=== PATIENT | female | born 1975 | race Caucasian/White ===

== ENCOUNTER 2022-01-01 09:57 | Outpatient (REF) | payer MEDICAID, SELFPAY ==
--- NOTE | ~2022-01-01 | US_ITS ---
EXAMINATION: US VENOUS ULTRASOUND WITH DOPPLER LOWER EXTREMITY, LEFT CLINICAL INFORMATION: Left leg pain COMPARISON: None TECHNIQUE: Ultrasound of the deep veins is performed from the hip to the calf with compression sonography and color and pulse Doppler assessment. Spectral analysis with color-flow imaging is performed. FINDINGS: There is normal venous compression and respiratory variation and augmented flow. The visualized common femoral vein, superficial femoral vein, profunda femoral vein, popliteal vein, and the trifurcation region shows no evidence of deep venous thrombosis. There is no significant popliteal fossa cyst. No popliteal artery aneurysm. US/US venous duplex LE LT IMPRESSION: No acute DVT demonstrated in the left lower extremity.
== END 2022-01-01 09:58 | disposition home or self-care (01) ==
LOC: HO.US 09:57
PROVIDERS: Absent Provider Internal Medicine; PCP Internal Medicine; Visit Provider Emergency Medicine
DX: M79.605 Pain in left leg (principal)
CPT/HCPCS: 93971

== ENCOUNTER 2022-03-09 16:38 | Emergency (ER) | payer MEDICAID, SELFPAY ==
--- NOTE | ~2022-03-09 | XR_ITS ---
EXAMINATION: XR CHEST CLINICAL INFORMATION: Shortness of breath COMPARISON: 04/07/2020 TECHNIQUE: Frontal view of the chest was obtained. FINDINGS: No significant abnormality is noted involving the heart, lungs, mediastinum, bony thorax or soft tissues. XR/XR chest 1V IMPRESSION: Unremarkable examination.
[2022-03-09 17:44] VITALS: BP 105/69; PULSE 88; RESP 16; TEMP 36.9; O2SAT 97; BMI 35.4
--- NOTE | 2022-03-09 18:03 | ED.GENADULT ---
HPI - General Adult General Chief complaint: Upper Respiratory Symptoms Stated complaint: asthma diff breathing Time Seen by Provider: 03/09/22 18:02 Source: patient Mode of arrival: ambulatory Limitations: no limitations History of Present Illness HPI narrative: This is a 46-year-old female past medical history significant for asthma presenting to the emergency department with a sore throat, dry cough, shortness of breath and some wheezing. Patient tells me symptoms are worse at night. This has been going on for 2 days. She tells me she went to work today and her boss requested that she get a strep test to rule out strep as this is contagious. Patient tells me that she feels fine right now. She has been taking Mucinex and inhaler. She denies chest pain, fevers, chills, nausea, vomiting, abdominal pain, weakness, dizziness, vision changes. No recent sick contacts. Onset (ago): day(s) (2) Severity: mild Relieving factors: none Exacerbating factors: none Associated symptoms: denies other symptoms Treatments prior to arrival: none and other (Mucinex, inhaler) Related Data Previous Rx's Medication Instructions Recorded albuterol sulfate 90 mcg/actuation 2 inh INHALATION Q4-6H PRN #1 ea 03/09/22 breath activated powder inhaler fluticasone propionate 50 1 spray INTRANASAL DAILY #16 g 03/09/22 mcg/actuation nasal spray,suspension (Flonase Allergy Relief) prednisone 20 mg tablet 20 mg PO DAILY 5 Days #5 tab 03/09/22 Allergies Allergy/AdvReac Type Severity Reaction Status Date / Time morphine [MORPHINE] Allergy Severe DIFFICULTY Verified 03/09/22 17:39 BREATHING, asthma, asthma ibuprofen [IBUPROFEN] Allergy Mild HIVES Verified 03/09/22 17:39 red dye [RED DYE] Allergy Mild HIVES Verified 03/09/22 17:39 tramadol [TRAMADOL] Allergy Mild HIVES Verified 03/09/22 17:39 VOMITTING Tylox Allergy Unknown hives Uncoded 12/24/15 00:00 Review of Systems Review of Systems: Constitutional : No Weight loss, No Fever, No Chills, No Fatigue, No Malaise ENT/Mouth : No sore throat, No Rhinorrhea Eyes: No Eye Pain, No Swelling, No Redness Cardiovascular : No Chest Pain, + SOB, No Dyspnea on Exertion, No Orthopnea, No Edema, No Palpitations Respiratory : No Cough, No Sputum, + Wheezing Gastrointestinal : No Nausea, No Vomiting, No Diarrhea, No Constipation, No abdominal Pain, No Hematochezia, No Melena Genitourinary : No Dysuria, No Urinary Frequency, No Hematuria, Musculoskeletal : No joint pain, No Myalgias, No Joint Swelling Skin : No Skin Lesions, No rash Neuro : No Weakness, No Numbness, No Dizziness, No Headache Psych : No Anxiety/Panic, No Depression All other systems reviewed and are negative Yes all other systems are reviewed and are negative [facility] Past Medical History Attestation statement: The following information was validated with the patient. Source: old records reviewed and nursing notes reviewed Medical History Asthma Surgical History H/O: hysterectomy History of cholecystectomy Social History Social History Advance Directives: No Advance Directives Information Provided: Yes Physical Exam ED Vital Signs: Vital Signs - 24 hr 03/09/22 17:44 03/09/22 18:22 Temperature 98.4 F Pulse Rate 88 84 Respiratory Rate 16 16 Blood Pressure 105/69 Pulse Oximetry 97 BMI result Body Mass Index 35.4 Vital signs stable Appearance: Alert.? Oriented X3.? No acute distress.? Head: Normocephalic, atraumatic, no step-offs or deformities Eyes: Pupils equal, round and reactive to light.? ENT: Pharynx normal.? Neck: Normal inspection.? Neck supple.? CVS: Normal heart rate and rhythm.? Pulses normal.? Respiratory: No respiratory distress.? Breath sounds normal.? Abdomen: Soft and + diminished breath sounds on right faint wheezing throughout .? Skin: Skin warm and dry.? Normal skin color.? Normal skin turgor.? Extremities: No lower extremity edema.? No calf ttp. 5/5 strength to bilateral upper and lower extremities Back: No midline tenderness, no C-spine tenderness, full range of motion, no CVA tenderness bilaterally Neuro: Oriented X 3.? No motor deficit.? No sensory deficit. CN 2-12 intact Course Reevaluation(s) Reevaluation #1: Strep negative. Chest x-ray with no acute findings. At this time likely viral syndrome. Patient will be discharged home with steroids, albuterol inhaler. I will also discharge him home on fluticasone as patient likely has allergies as well. At this time history and physical not consistent with pulmonary embolism. Patient denies chest pain. Patient tells me she is feeling better upon discharge. At this time I feel comfortable discharge home saturating 97% on ra on dc Time: 18:58 Medical Decision Making MDM Narrative Medical decision making narrative: 180 46 yo f presents w/ asthma like sx PE significant for have diminished breath sounds on the right and wheezing throughout that is faint. No lower extremity edema. No calf tenderness to palpation. Negative Tai bilaterally. Regular rate and rhythm. Abdomen soft nontender nondistended. Neuro nonfocal. Pharynx within normal limits no exudates or erythema. Plan- strep, cxr and albuterol tx Medical Records Medical records reviewed: Yes I reviewed the patient's medical records. Lab Data Lab results reviewed: Yes I reviewed the patient's lab results. Labs: Lab Results 03/09/22 Range/Units 18:38 S. pyogenes GrpA KELTON Negative (Negative) Critical Care Time Critical Care Time Critical Care Time: No Discharge Plan Discharge Clinical Impression: Bronchitis, Asthma Patient Disposition: Home, Self-Care Instructions: Asthma (ED), Acute Bronchitis (ED) Additional Instructions: Take your medications as prescribed. If you were prescribed antibiotics today, it is important that you take your medication to their entirety, do not skip any doses, do not finish them early. Follow-up with your primary care provider this week. Return to the emergency department with new or worsening symptoms. Such as fevers, chills, chest pain, shortness of breath, nausea, vomiting, dizziness, headache, vision changes, lethargy In case of emergency call 911 XR/XR chest 1V IMPRESSION: Unremarkable examination. Strep test negative. Prescriptions: New fluticasone propionate [Flonase Allergy Relief] 50 mcg/actuation spray,suspension 1 spray intranasal DAILY Qty: 16 0RF Rx Instructions: administer into each nostril albuterol sulfate 90 mcg/actuation aerosol powdr breath activated 2 inh inhalation Q4-6H PRN (Reason: shortness of breath or wheezing) Qty: 1 0RF prednisone 20 mg tablet 20 mg PO DAILY 5 Days Qty: 5 0RF Referrals: Renetta Tavares MD [Primary Care Provider] - 2 days Stand Alone Forms: Work/School Release
[2022-03-09] MEDS: Albuterol Sulfate (0.083%) 2.5 MG/3 ML VIAL.NEB 5 MG INHALE (18:16)
[2022-03-09 18:22] VITALS: PULSE 84; RESP 16; O2SAT 98
[2022-03-09 18:55] LABS: Strep A Nucleic Acid Negative (Negative)
== END 2022-03-09 19:07 | disposition home or self-care (01) ==
PROVIDERS: Emergency Provider Emergency Medicine; PCP Internal Medicine
DX: J40 Bronchitis, not specified as acute or chronic (principal); R06.02 Shortness of breath; Z79.899 Other long term (current) drug therapy
CPT/HCPCS: 36415; 71045; 87651; 94640; 94644; 99283; 99284

== ENCOUNTER 2022-08-03 18:49 | Emergency (ER) | payer MEDICAID, SELFPAY ==
[2022-08-03 23:29] VITALS: BP 101/54; PULSE 84; RESP 17; TEMP 36.4; O2SAT 99; BMI 26.4
== END 2022-08-04 00:12 | disposition left against medical advice (07) ==
PROVIDERS: Emergency Provider Emergency Medicine
DX: R10.9 Unspecified abdominal pain (principal); Z90.49 Acquired absence of other specified parts of digestive tract; Z90.710 Acquired absence of both cervix and uterus
CPT/HCPCS: 99281

== ENCOUNTER 2022-09-01 14:53 | Emergency (ER) | payer MEDICAID, SELFPAY ==
--- NOTE | ~2022-09-01 | XR_ITS ---
EXAMINATION: XR ANKLE, LEFT CLINICAL INFORMATION: Pain COMPARISON: None TECHNIQUE: AP, lateral, and mortise views of the left ankle. FINDINGS: The bones and soft tissues are normal. No fracture. Alignment is anatomic. Joint spaces are maintained. No joint effusion. There is inferior calcaneal spur. XR/XR ankle LT 2V IMPRESSION: Normal left ankle.
[2022-09-01 15:29] VITALS: BP 109/74; PULSE 81; RESP 18; TEMP 36.8; O2SAT 98; BMI 25.7
--- OUTSIDE RECORDS SUMMARY | 2022-09-01 22:49 | XMS_ITS | Continuity of Care Document ---
:1975 Author Organization [facility] Address [address] [place] [address]- Care Team Providers Name Role Phone Artem Gaxiola MD, Maria D Dimas Primary Care Physician Encounter [facility] Date(s): 05/14/20 - 06/13/20 [facility] [address] [place] [address]- [facility] Attending Physician: Sofia Hampton Admitting Physician: Sofia Hampton Referring Physician: AdmtrSofia Allergies, Adverse Reactions, Alerts Substance Reaction Severity Status ibuprofen Active morphine Active Tylox Active TraMADOL Hydrochloride Active Immunizations Given and Recorded Vaccine Date Status Refusal Reason pneumococcal 23-valent vaccine 11/03/11 Given tetanus/diphtheria/pertussis, acel(Tdap)1 02/05/11 Given 1Admin Note: vis given and waiver signed Medications Adderall 15 mg oral tablet 1 tablet, By Mouth, Daily in AM, 0 Refills, Maintenance, Tablet Start Date: 03/20/11 Status: OrderedCelexa 40 mg oral tablet 1 tablet = 40 mg, By Mouth, Daily, 0 Refills, Maintenance Start Date: 10/19/11 Status: OrderedFlovent HFA 44 mcg/inh inhalation aerosol with adapter 2 puffs, Inhalation, 2 times a day, # 10.6 Gm, 5 Refills, Maintenance, Aerosol Start Date: 07/04/12 Status: OrderedNebulizer/Compressor See Instructions, # 1 each, Maintenance, for use with albuterol liquid nebules, QID prn cough or wheezing, 12/18/11 14:16:28 Start Date: 12/18/11 Status: Orderednicotine 21 mg-14 mg-7 mg transdermal film, extended release See Instructions, 21 mg patch QD x 3 wks then 14 mg patch QD x 2 wks then 2 mg patch QD x 2 wks, # 49 application, 0 Refills, Maintenance Start Date: 05/18/12 Status: OrderedPercocet-5/325 325 mg-5 mg oral tablet 2 tablet, By Mouth, Every 4 hours, PRN Pain, # 30 tablet, 0 Refills, Maintenance Start Date: 05/19/12 Status: OrderedProAir HFA 90 mcg/inh inhalation aerosol with adapter 2 puffs, Inhalation, Every 6 hours, PRN for wheezing, # 8.5 Gm, 5 Refills, Maintenance, Aerosol Start Date: 07/04/12 Status: Orderedtrazodone 50 mg oral tablet 1 tablet = 50 mg, By Mouth, Daily at bedtime, 0 Refills, Maintenance Start Date: 01/21/12 Status: Ordered Problem List Condition Effective Dates Status Health Status Informant ADD - Attention deficit Active disorder(Confirmed) Asthma(Confirmed) Active [id number], 2, c/s 1, top 1, Active ectopic 1(Confirmed) Major depression(Confirmed) Active Migraine(Confirmed) Active Social history(Confirmed)1 Active Tubal ligation(Confirmed) Active 1pdhruv craft
--- OUTSIDE RECORDS SUMMARY | 2022-09-01 22:49 | XMS_ITS | Continuity of Care Document ---
:1975 Author Organization [facility] Address [address] [place] [address]- Care Team Providers Name Role Phone Maria D Chaudhry MD Primary Care Phys[id number] Date[facility] [address] [place] [address]- [facility] Attending Physician: Florencio Bishop Referring Physician: Maria D Chaudhry MD Allergies, Adverse Reactions, Alerts Substance Reaction Severity [...] - Attention deficit Active disorder(Confirmed) Asthma(Confirmed) Active [id number], 2, c/s 1, top 1, Active ectopic 1(Confirmed) Major depression(Confirmed) Active Migraine(Confirmed) Active Social history(Confirmed)1 Active Tubal ligation(Confirmed) Active 1pdhruv craft
== END 2022-09-01 23:16 | disposition left against medical advice (07) ==
LOC: HO.ED 22:48
PROVIDERS: Emergency Provider Emergency Medicine; PCP Internal Medicine
DX: M79.605 Pain in left leg (principal)
CPT/HCPCS: 73600; 99281; 99283

== ENCOUNTER 2022-09-03 21:36 | Emergency (ER) | payer MEDICAID, SELFPAY ==
--- NOTE | ~2022-09-03 | US_ITS ---
EXAMINATION: US VENOUS ULTRASOUND WITH DOPPLER LOWER EXTREMITY, LEFT CLINICAL INFORMATION: Leg pain. COMPARISON: None TECHNIQUE: Ultrasound of the deep veins is performed from the hip to the calf with compression sonography and color and pulse Doppler assessment. Spectral analysis with color-flow imaging is performed. FINDINGS: There is normal venous compression and respiratory variation and augmented flow. The visualized common femoral vein, superficial femoral vein, profunda femoral vein, popliteal vein, and the trifurcation region shows no evidence of deep venous thrombosis. There is no significant popliteal fossa cyst. If the patient's symptoms persist, followup ultrasound in 5 days 7 days might be of value to exclude proximal propagation from a non-visualized calf vein. US/US venous duplex LE LT IMPRESSION: No DVT demonstrated in the left lower extremity.
[2022-09-03 21:38] VITALS: BP 117/57; PULSE 94; RESP 97; TEMP 37.2; O2SAT 96; BMI 26.4
[2022-09-03 23:23] VITALS: BP 102/61; PULSE 83; RESP 16; TEMP 36.8; O2SAT 98
--- NOTE | 2022-09-03 23:50 | ED.EXTPRO ---
HPI - Extremity Problem General Chief complaint: Extremity Problem Stated complaint: left swollen ankle Time Seen by Provider: 09/03/22 23:48 Source: patient Mode of arrival: ambulatory Limitations: no limitations History of Present Illness HPI Narrative: Patient complaining of left ankle pain and swelling for some time at least 3 months denies any recent injury no calf pain no shortness of breath no other joints involved patient able to ambulate Related Data Previous Rx's Medication Instructions Recorded albuterol sulfate 90 mcg/actuation 2 inh inhalation Q4-6H PRN 03/09/22 breath activated powder inhaler shortness of breath or wheezing #1 ea fluticasone propionate 50 1 spray intranasal DAILY #16 grams 03/09/22 mcg/actuation nasal spray,suspension (Flonase Allergy Relief) prednisone 20 mg tablet 20 mg PO DAILY 5 days #5 tabs 03/09/22 oxycodone 5 mg tablet 5 mg PO Q6H PRN Pain (Scale Score 09/04/22 4-6) #20 tabs Allergies Allergy/AdvReac Type Severity Reaction Status Date / Time morphine [MORPHINE] Allergy Severe DIFFICULTY Verified 08/03/22 23:29 BREATHING, asthma, asthma ibuprofen [IBUPROFEN] Allergy Mild HIVES Verified 08/03/22 23:29 red dye [RED DYE] Allergy Mild HIVES Verified 08/03/22 23:29 tramadol [TRAMADOL] Allergy Mild HIVES Verified 08/03/22 23:29 VOMITTING Tylox Allergy Unknown hives Uncoded 08/03/22 23:29 Review of Systems Review of Systems: Yes all other systems are reviewed and are negative PMFSH Past Medical History Medical History Asthma Surgical History H/O: hysterectomy History of cholecystectomy Social History Social History Alcohol intake: never Patient Tobacco Use Status: Former Tobacco user Smoked in Last 30 Days: No Use of substances other than those prescribed or required for medical reasons: No Advance Directives: No Advance Directives Information Provided: No Physical Exam Vital Signs: Vital Signs: Last Vital Signs Temp 98.3 F 09/03/22 23:23 Pulse 88 10/14/22 00:43 Resp 18 09/04/22 00:43 BP 101/64 09/04/22 00:43 Pulse Ox 98 09/04/22 00:43 O2 Del Method 09/04/22 00:43 BMI result Body Mass Index 26.4 Appearance: Alert. Oriented X3. No acute distress. Neck: Normal inspection. Neck supple. CVS: Normal heart rate and rhythm. Pulses normal. Respiratory: No respiratory distress. Equal air entry bilateral, no wheezing/rales/rhonchi Abdomen: Soft and nontender. Bowel sounds are present, no mass palpable, no CVA tenderness Skin: Skin warm and dry. Normal skin color. Normal skin turgor. Extremities: No lower extremity edema. No calf tenderness tenderness at lateral malleolus with soft tissue swelling Neuro: Oriented X 3. No motor deficit. No sensory deficit.No cerebellar signs , cranial nerves II-XII intact Discharge Plan Discharge Clinical Impression: Left ankle sprain Patient Disposition: Home, Self-Care Instructions: Ankle Sprain (ED) Additional Instructions: Wear Aircast as provided Keep left leg elevated Rest to your left leg Pain medication as prescribed Prescriptions: New oxycodone 5 mg tablet 5 mg PO Q6H PRN (Reason: Pain (Scale Score 4-6)) Qty: 20 0RF Rx Instructions: Partial Fill upon patient request. No Action fluticasone propionate [Flonase Allergy Relief] 50 mcg/actuation spray,suspension 1 spray intranasal DAILY Qty: 16 0RF Rx Instructions: administer into each nostril albuterol sulfate 90 mcg/actuation aerosol powdr breath activated 2 inh inhalation Q4-6H PRN (Reason: shortness of breath or wheezing) Qty: 1 0RF prednisone 20 mg tablet 20 mg PO DAILY 5 Days Qty: 5 0RF Discharge Date/Time: 09/04/22 00:43
[2022-09-04] MEDS: oxyCODONE HCl Immed Release 5 MG TABLET PO (00:19)
[2022-09-04 00:43] VITALS: BP 101/64; PULSE 88; RESP 18; O2SAT 98
== END 2022-09-04 00:43 | disposition home or self-care (01) ==
PROVIDERS: Emergency Provider Internal Medicine
DX: S93.402A Sprain of unspecified ligament of left ankle, initial encounter (principal); X58.XXXA Exposure to other specified factors, initial encounter; M25.572 Pain in left ankle and joints of left foot; Y93.9 Activity, unspecified; Y92.9 Unspecified place or not applicable; Y99.9 Unspecified external cause status
CPT/HCPCS: 93971; 99284

== ENCOUNTER 2023-03-17 15:58 | Emergency (ER) | payer MEDICAID, SELFPAY ==
--- NOTE | ~2023-03-17 | XR_ITS ---
EXAMINATION: XR HIP, LEFT CLINICAL INFORMATION: Left hip pain after falling COMPARISON: None available. TECHNIQUE: Two views of the left hip. FINDINGS: No fracture, dislocation or destructive process or erosive change. The pelvis and right hip are intact. XR/XR hip LT w PEL1V IMPRESSION: Unremarkable study. No fracture.
--- NOTE | 2023-03-17 15:59 | ED_ITS ---
HPI - General Adult General Chief complaint: Fall <ADA Aguero Last Filed: 03/17/23 16:03> Stated complaint: left hip injury <ADA Aguero Last Filed: 03/17/23 16:03> Time Seen by Provider: 03/17/23 18:51 <ADA Aguero Last Filed: 03/17/23 16:03> Source: patient <DO Radha Nieves Last Filed: 03/17/23 19:08> Mode of arrival: ambulatory <DO Radha Nieves Last Filed: 03/17/23 19:08> Limitations: no limitations <DO Radha Nieves Last Filed: 03/17/23 19:08> History of Present Illness HPI narrative: 47-year-old female she states she has a mastiff who stumbled that led to her falling onto her left hip this happened yesterday she is complaining of worsening pain to the left hip she has not take anything for pain she denies fevers chills cough nausea vomiting or diarrhea. <Vipin Longoria DO - Last Filed: 03/17/23 19:08> Onset (ago): day(s) <DO Radha Nieves Last Filed: 03/17/23 19:08> Related Data Home medications: Previous Rx's Medication Instructions Recorded albuterol sulfate 90 mcg/actuation 2 inh inhalation Q4-6H PRN 03/09/22 breath activated powder inhaler shortness of breath or wheezing #1 ea fluticasone propionate 50 1 spray intranasal DAILY #16 grams 03/09/22 mcg/actuation nasal spray,suspension (Flonase Allergy Relief) prednisone 20 mg tablet 20 mg PO DAILY 5 days #5 tabs 03/09/22 oxycodone 5 mg tablet 5 mg PO Q6H PRN Pain (Scale Score 09/04/22 4-6) #20 tabs prednisone 20 mg tablet 60 mg PO DAILY Asthma 5 days #15 03/17/23 tabs <ADA Aguero Last Filed: 03/17/23 16:03> Allergies/adverse reactions: Allergies Allergy/AdvReac Type Severity Reaction Status Date / Time morphine [MORPHINE] Allergy Severe DIFFICULTY Verified 03/17/23 16:02 BREATHING, asthma, asthma ibuprofen [IBUPROFEN] Allergy Mild HIVES Verified 03/17/23 16:02 red dye [RED DYE] Allergy Mild HIVES Verified 03/17/23 16:02 tramadol [TRAMADOL] Allergy Mild HIVES Verified 03/17/23 16:02 VOMITTING Tylox Allergy Unknown hives Uncoded 08/03/22 23:29 <ADA Aguero - Last Filed: 03/17/23 16:03> Review of Systems Review of Systems: Review of systems: General: Patient denies any fever chills recent illness or falls Musculoskeletal: Denies back pain or body aches or other injuries HEENT: denies headache, runny nose, ear pain Respiratory: denies shortness of breath, cough Cardiovascular: no chest pain or palpitations : denies dysuria, frequency Abdomen: no nausea vomiting denies abdominal pain Extremities: no swelling, left hip pain Skin: no diaphoresis <Vipin Longoria DO - Last Filed: 03/17/23 19:08> Yes all other systems are reviewed and are negative <Vipin Longoria DO - Last Filed: 03/17/23 19:08> [facility] Past Medical History Medical History: Medical History Asthma <ADA Aguero - Last Filed: 03/17/23 16:03> Surgical History: Surgical History H/O: hysterectomy History of cholecystectomy <ADA Aguero Last Filed: 03/17/23 16:03> Social History Social History: Social History Alcohol intake: never Patient Tobacco Use Status: Former Tobacco user Advance Directives: No Advance Directives Information Provided: No <ADA Aguero Last Filed: 03/17/23 16:03> Physical Exam ED Vital Signs: Vital Signs - 24 hr 03/17/23 16:02 Temperature 98.2 F Pulse Rate 95 Respiratory Rate 18 Blood Pressure 116/67 Pulse Oximetry 96 Oxygen Delivery Method Room Air BMI result Body Mass Index 27.9 <ADA Aguero Last Filed: 03/17/23 16:03> Vital Signs - 24 hr 03/17/23 16:02 Temperature 98.2 F Pulse Rate 95 Respiratory Rate 18 Blood Pressure 116/67 Pulse Oximetry 96 Oxygen Delivery Method Room Air BMI result Body Mass Index 27.9 <Vipin Longoria DO - Last Filed: 03/17/23 19:08> General: Well-appearing well-nourished in no signs of distress HEENT: Normocephalic atraumatic Neck: No signs of JVD, no masses no tenderness or lymphadenopathy Cardiovascular: Regular rate and rhythm Respiratory: Clear to auscultation bilaterally Abdomen: Soft nontender no masses Extremities: Normal pedal pulses no signs of edema no bruising noted to left leg patient has full range of motion is able to bend and flex the hip and knee Skin: Dry warm no rashes Back: No tenderness full ROM <Vipin Longoria DO - Last Filed: 03/17/23 19:08> Course Course Course Narrative: This is an RME: Additional HPI, ROS, PE not included below will be deferred to primary provider. 47 year old female presents to the ED with left hip pain post fall without headstrike yesterday. Patient not on blood thinners. PE: benign, ambulatory Plan: imaging <ADA Aguero Last Filed: 03/17/23 16:03> Medical Decision Making Medical Decision Making MDM Narrative: Also the patient for an x-ray patient otherwise is well patient showed Toradol he will send patient home on prednisone for the next few days. <Vipin Longoria DO - Last Filed: 03/17/23 19:08> Differential Diagnosis Differential Diagnoses: The differential diagnosis associated with the presentation includes <Vipin Longoria DO - Last Filed: 03/17/23 19:08> Left hip fracture dislocation or contusion <Vipin Longoria DO - Last Filed: 03/17/23 19:08> Independent Interpretation I performed an independent interpretation of an: Plain X-Ray <Vipin Longoria DO - Last Filed: 03/17/23 19:08> Radiology Impression Discussion of test interpretation with radiology: I have reviewed the radiologist's reading. <Vipin Longoria DO - Last Filed: 03/17/23 19:08> Discharge Plan Discharge Clinical Impression: Contusion of hip, left <ADA Aguero - Last Filed: 03/17/23 16:03> Patient Disposition: Home, Self-Care <ADA Aguero - Last Filed: 03/17/23 16:03> Instructions: Contusion in Adults (ED), Hip Contusion (ED) <ADA Aguero - Last Filed: 03/17/23 16:03> Additional Instructions: Please call follow-up to with your doctor. You can take the prednisone as needed for the pain if you have any other concerns please do not hesitate to come back to the emergency department. <ADA Aguero - Last Filed: 03/17/23 16:03> Prescriptions: New prednisone 20 mg tablet 60 mg PO DAILY 5 Days Qty: 15 0RF No Action oxycodone 5 mg tablet 5 mg PO Q6H PRN (Reason: Pain (Scale Score 4-6)) Qty: 20 0RF Rx Instructions: Partial Fill upon patient request. fluticasone propionate [Flonase Allergy Relief] 50 mcg/actuation spray,suspension 1 spray intranasal DAILY Qty: 16 0RF Rx Instructions: administer into each nostril albuterol sulfate 90 mcg/actuation aerosol powdr breath activated 2 inh inhalation Q4-6H PRN (Reason: shortness of breath or wheezing) Qty: 1 0RF prednisone 20 mg tablet 20 mg PO DAILY 5 Days Qty: 5 0RF <ADA Aguero - Last Filed: 03/17/23 16:03>
[2023-03-17 16:02] VITALS: BP 116/67; PULSE 95; RESP 18; TEMP 36.8; O2SAT 96; BMI 27.9
[2023-03-17] MEDS: Ketorolac Tromethamine 30 MG/ML VIAL 15 MG IM (19:16)
== END 2023-03-17 19:20 | disposition home or self-care (01) ==
PROVIDERS: Emergency Provider Student in an Organized Health Care Education/Training Program; PCP Internal Medicine
DX: S70.02XA Contusion of left hip, initial encounter (principal); M25.552 Pain in left hip; W01.0XXA Fall on same level from slipping, tripping and stumbling without subsequent striking against object, initial encounter; Y93.9 Activity, unspecified; Y92.9 Unspecified place or not applicable; Y99.9 Unspecified external cause status
CPT/HCPCS: 73502; 96372; 99283; 99284; J1885

== ENCOUNTER 2023-07-07 01:50 | Emergency (ER) | payer MEDICAID, SELFPAY ==
[2023-07-07 02:06] VITALS: BP 110/60; BP 96/58; PULSE 122; PULSE 75; RESP 18; TEMP 36.9; O2SAT 95; O2SAT 96; BMI 28.4
--- NOTE | 2023-07-07 04:03 | PC.NURSE ---
pt wanted to leave due to she had to open [employer]. pt unable to wait for the provider, pt s/s have resolved talking in full sentences. steady gait. no s/s of distress.
== END 2023-07-07 04:27 | disposition left against medical advice (07) ==
PROVIDERS: Emergency Provider Emergency Medicine
DX: J45.909 Unspecified asthma, uncomplicated (principal)
CPT/HCPCS: 99282; 99284

== ENCOUNTER 2023-10-08 17:45 | Outpatient (REF) | payer MEDICAID, SELFPAY ==
[2023-10-08 18:30] LABS: Influenza A PCR NEGATIVE (Negative); Influenza B PCR NEGATIVE (Negative); Resp Syncy Virus RNA Qual PCR NEGATIVE (Negative); SARS COV2 PCR INHOUSE NEGATIVE (Negative)
== END 2023-10-08 17:46 | disposition home or self-care (01) ==
LOC: HO.LNP 17:45
PROVIDERS: Visit Provider Emergency Medicine
DX: Z11.52 Encounter for screening for COVID-19 (principal); J06.9 Acute upper respiratory infection, unspecified
CPT/HCPCS: 0241U

== ENCOUNTER 2025-05-24 15:00 | Emergency (ER) | payer MEDICAID, SELFPAY ==
--- NOTE | ~2025-05-24 | XR_ITS ---
EXAMINATION: XR ANKLE, LEFT CLINICAL INFORMATION: fall , lower extremity bruising, injured by 300 pound dog COMPARISON: None available. TECHNIQUE: AP, lateral, and mortise views of the left ankle. FINDINGS: The ankle mortise is congruent. There is no widening of the syndesmosis. The talar dome is intact. Moderate plantar calcaneal enthesophyte is present. XR/XR ankle LT 2V IMPRESSION: Unremarkable left ankle Electronically signed by: Zaid Owen MD 05/24/2025 03:53 PM EDT
--- NOTE | ~2025-05-24 | XR_ITS ---
EXAMINATION: XR KNEE, LEFT CLINICAL INFORMATION: fall COMPARISON: January 05, 2016 TECHNIQUE: AP oblique and lateral views of the left knee. FINDINGS: No acute cortical disruption or malalignment. No suprapatellar bursa joint effusion. No lytic or blastic lesions. No metallic or radiopaque foreign body. No subcutaneous emphysema. XR/XR knee LT 4V IMPRESSION: No acute fracture or dislocation. Electronically signed by: Socrates Ely MD 05/24/2025 03:49 PM EDT
--- NOTE | ~2025-05-24 | XR_ITS ---
EXAMINATION: XR FOOT, LEFT CLINICAL INFORMATION: fall 2 days ago involving 300 pound dog and with lower extremity bruising currently COMPARISON: None available. TECHNIQUE: AP, lateral, and oblique views of the left foot. FINDINGS: Plantar calcaneal spurs moderate size. No fracture, deformity, or malalignment identified. There are no degenerative changes. XR/XR foot LT 2V IMPRESSION: Nonspecific, calcaneal spur. Electronically signed by: Zaid Owen MD 05/24/2025 03:54 PM EDT
--- NOTE | ~2025-05-24 | XR_ITS ---
Exam: AP and lateral left tibia and fibula INDICATION: Patient fell, 2 days ago, lower leg bruising Prior: None FINDINGS: No acute fracture or deformity. XR/XR tibia fibula LT 2V IMPRESSION: Unremarkable left tibia and fibula. Electronically signed by: Zaid Owen MD 05/24/2025 03:52 PM EDT
[2025-05-24 15:15] VITALS: BP 125/86; PULSE 106; RESP 16; TEMP 36.3; O2SAT 98; BMI 27.7
--- NOTE | 2025-05-24 15:20 | ED.GENADULT ---
HPI - General Adult General Chief complaint: Extremity Injury, Lower Stated complaint: Fall - bruises L leg Time Seen by Provider: 05/24/25 16:09 Source: patient Mode of arrival: ambulatory Limitations: no limitations History of Present Illness ED Provider: Max Augustine HPI narrative: 49 yold female presents to ED for left leg pain for the past 2 days after falling onto left leg after being pushed by her 300 pound dog. Patient fell onto leg without hitting head or loss of consciousness as per patient. Patient states no other complaints. Patient denies being on any blood thinners. Related Data Previous Rx's ?Medication ?Instructions ?Recorded albuterol sulfate 90 mcg/actuation 2 inh inhalation Q4-6H PRN 03/09/22 breath activated powder inhaler shortness of breath or wheezing #1 ea fluticasone propionate 50 1 spray intranasal DAILY #16 grams 03/09/22 mcg/actuation nasal spray,suspension (Flonase Allergy Relief) prednisone 20 mg tablet 20 mg PO DAILY 5 days #5 tabs 03/09/22 oxycodone 5 mg tablet 5 mg PO Q6H PRN Pain (Scale Score 09/04/22 4-6) #20 tabs prednisone 20 mg tablet 60 mg (3 x 20 mg) PO DAILY Asthma 03/17/23 5 days #15 tabs Allergies Allergy/AdvReac Type Severity Reaction Status Date / Time morphine (MORPHINE) Allergy Severe DIFFICULTY Verified 05/24/25 15:18 BREATHING, asthma, asthma ibuprofen (IBUPROFEN) Allergy Mild HIVES Verified 05/24/25 15:18 red dye (RED DYE) Allergy Mild HIVES Verified 05/24/25 15:18 tramadol (TRAMADOL) Allergy Mild HIVES Verified 05/24/25 15:18 VOMITTING Tylox Allergy Unknown hives Uncoded 08/03/22 23:29 Review of Systems Review of Systems: Left leg pain with bruising Yes all other systems are reviewed and are negative PMFSH Past Medical History Medical History Asthma Surgical History H/O: hysterectomy History of cholecystectomy Social History Social History Alcohol intake: never Patient Tobacco Use Status: Former Tobacco user Advance Directives: No Advance Directives Information Provided: No Do you have a plan to hurt others: No Plan Physical Exam ED Vital Signs: Vital Signs - 24 hr 05/24/25 15:15 05/24/25 16:52 Temperature 97.4 F 97.4 F Pulse Rate 106 H 106 H Respiratory Rate 16 16 Blood Pressure 125/86 125/86 Pulse Oximetry 98 98 Oxygen Delivery Method Room Air Room Air BMI result Body Mass Index 27.7 Const General: cooperative, healthy appearing, comfortable, no acute distress, well developed, alert, awake and Physically active Orientation/consciousness: patient oriented x3 HENMT Head: Yes normal to inspection, Yes No palpable skull fracture present, Yes normocephalic and Yes atraumatic Eyes General: appearance normal, both eyes and all related structures Neck Neck: Yes normal visual inspection, Yes full ROM, Yes no lymphadenopathy, Yes no meningeal signs, Yes trachea midline, Yes supple, No anterior neck swelling and No tender Chest Chest palpation & inspection: normal inspection of the chest and normal palpation of entire chest wall Resp Effort & Inspection: normal respiratory effort and able to speak in complete sentences Auscultation: clear to auscultation bilaterally Cardio Jugular venous distension: no JVD Heart sounds: S1 normal heart sound present and S2 normal heart sound present GI Inspection: Yes normal to inspection Palpation (GI): Soft to palpation, not firm, nontender, no guarding and not rigid General: Yes no CVA tenderness Back/Spine/Pelvis Back: no CVA tenderness and No back tenderness Skin General skin exam: no rashes or lesions noted, elasticity normal and turgor normal Neuro General: patient oriented x3, gait normal, tone normal, moves all extremities, Normal light touch and pain sensation, no meningeal signs, no focal motor deficits, CN's II-XI intact bilaterally and normal sensation to monofilament Extrem General: Yes normal to inspection, Yes full ROM and Yes capillary refill normal Upper/lower leg/hip images:  1. Positive for ecchymosis. Negative for any crepitus or deformity. Negative for erythema, warmth, calf pain, skin tightness, or skin coldness. Vascular motor neuro exam intact. Psych Appearance: grossly normal, well kempt and not disheveled Course Course Course Narrative: RME: 49-year-old female presents to ED for left lower extremity bruising. Patient states 2 days ago she was pushed by a 300 lb dog and she fell onto her left leg onto the floor. Patient denies any head trauma loss of consciousness. Positive for significant bruising of left leg and ankle. Presently not suspecting compartment syndrome. X-ray labs ordered. Medical Decision Making Medical Decision Making [facility] Narrative: 49-year-old female presents to the ED left leg discomfort after falling onto leg. X-rays negative for fractures. Labs negative for signs of thrombocytopenia or increased risk of bleeding. Not suspecting compartment syndrome, DVT, osteomyelitis, arterial occlusion, vasculitis, necrotizing fasciitis, cellulitis, or any other life threatening etiologies. Patient explained worrisome signs and informed to come to the ED immediately. Differential Diagnosis Differential Diagnoses: The differential diagnosis associated with the presentation includes (fracture, dislcoation) Admission/Observation Consideration of admission/observation: Escalation of care including admission/observation considered Lab Data [facility] Lab Attestation statement: I reviewed the patient's lab results. 05/24/25 15:40 05/24/25 15:40 Labs: Lab Results 05/24/25 Range/Units 15:40 WBC 8.3 (4.8-10.8) X10*3/uL RBC 4.45 (4.20-5.50) X10*6/uL Hgb 12.7 (12.0-16.0) g/dl Hct 38.6 (37.0-47.0) % MCV 86.7 (80.0-98.0) fL MCH 28.5 (27.0-33.0) pg MCHC 32.9 (31.0-35.0) g/dl RDW 13.9 (11.0-16.0) % Plt Count 287 (160-400) X10*3/uL MPV 10.3 (9.4-12.3) fL Immature Gran % (Auto) 0.2 (0.0-0.4) % Neut % (Auto) 68.7 (45-73) % Lymph % (Auto) 22.4 (20-40) % [place] % (Auto) 8.2 (2-11) % Eos % (Auto) 0.0 (0-4) % Baso % (Auto) 0.5 (0-2) % Lymph # (Auto) 1.9 (1.2-4.9) X10*3/uL [place] # (Auto) 0.7 (0.1-1.2) X10*3/uL Eos # (Auto) 0.0 (0.0-0.4) X10*3/uL Baso # (Auto) 0.0 (0.0-0.2) X10*3/uL Abs Immat Gran (auto) 0.02 (0.00-0.03) X10*3/uL Absolute Neuts (auto) 5.7 (2.0-8.3) x10*3/uL Absolute Nucleated RBC 0.000 (0.0-0.012) X10*3/uL Nucleated RBC % (auto) 0.0 (0.0-0.2) /100WBC PT 11.0 (10.9-12.4) SEC INR 1.0 (0.9-1.1) APTT 30.1 (26.0-36.8) SEC Sodium 138 (135-145) mmol/L Potassium 3.7 (3.3-5.1) mmol/L Chloride 105 (96-108) mmol/L Carbon Dioxide 25 (22-29) mmol/L Anion Gap 12 (12-20) BUN 9 (9-16) mg/dL Creatinine 0.68 (0.5-1.4) mg/dL Estim Creat Clear Calc 88.2 Estimated GFR > 60 Random Glucose 103 (60-115) mg/dL Calcium 8.6 (8.4-10.2) mg/dL Total Bilirubin 0.2 (0.0-1.0) mg/dL AST 16 (5-31) U/L ALT 12 (0-31) U/L Alkaline Phosphatase 79 (39-117) U/L Total Protein 7.0 (6.5-8.0) g/dL Albumin 4.0 (3.5-5.0) g/dL Independent Interpretation I performed an independent interpretation of an: Plain X-Ray Radiology Impression Discussion of test interpretation with radiology: I have reviewed the radiologist's reading. Prescription Management I considered prescription management with: Pain Medication Discharge Plan Discharge Clinical Impression: Contusion Patient Disposition: Home, Self-Care Instructions: Contusion in Adults (ED) Additional Instructions: Your x-rays and labs came back reassuring. Recommend follow up with primary care provider. Return to the ED for increased swelling, severe pain, calf pain, hotness, coldness, numbness/tingling, or any other concerning symptoms. [id number] Tylenol can be used for pain Prescriptions: No Action oxycodone 5 mg tablet 5 mg PO Q6H PRN (Reason: Pain (Scale Score 4-6)) Qty: 20 0RF Rx Instructions: Partial Fill upon patient request. fluticasone propionate [Flonase Allergy Relief] 50 mcg/actuation spray,suspension 1 spray intranasal DAILY Qty: 16 0RF Rx Instructions: administer into each nostril albuterol sulfate 90 mcg/actuation aerosol powdr breath activated 2 inh inhalation Q4-6H PRN (Reason: shortness of breath or wheezing) Qty: 1 0RF prednisone 20 mg tablet 20 mg PO DAILY 5 Days Qty: 5 0RF prednisone 20 mg tablet 60 mg PO DAILY 5 Days Qty: 15 0RF Referrals: Renetta Tavares MD [Primary Care Provider, Internal Medicine] - 2 days Referral Note: Contusion Stand Alone Forms: Work/School Release Interventions: ED Discharge Assessment Last Done: 05/24/25 16:52 Discharge Date/Time: 05/24/25 16:52 Print Language: [place]
[2025-05-24 15:53] LABS: MANUAL DIFF FLAG NO
[2025-05-24 15:55] LABS: Hematocrit 38.6 % (37.0-47.0); Hemoglobin 12.7 g/dl (12.0-16.0); Imm Gran Abs Auto 0.02 X10*3/uL (0.00-0.03); Imm Gran Pct Auto 0.2 % (0.0-0.4); Lymphocytes Absolute Auto 1.9 X10*3/uL (1.2-4.9); Mean Corpuscular HGB Conc 32.9 g/dl (31.0-35.0); Mean Corpuscular Hemoglobin 28.5 pg (27.0-33.0); Mean Corpuscular Volume 86.7 fL (80.0-98.0); NRBC Abs Auto 0.000 X10*3/uL (0.0-0.012); NRBC Pct Auto 0.0 /100WBC (0.0-0.2); Platelet Count 287 X10*3/uL (160-400); Red Blood Count 4.45 X10*6/uL (4.20-5.50); White Blood Count 8.3 X10*3/uL (4.8-10.8)
[2025-05-24 16:01] LABS: INTERNATIONAL NORM RATIO 1.0 (0.9-1.1); Prothrombin Time 11.0 SEC (10.9-12.4)
[2025-05-24 16:04] LABS: Partial Thromboplastin Time 30.1 SEC (26.0-36.8)
[2025-05-24 16:09] LABS: Alanine Aminotransferase 12 U/L (0-31); Albumin Level 4.0 g/dL (3.5-5.0); Alkaline Phosphatase 79 U/L (39-117); Anion Gap 12 (12-20); Aspartate Amino Transferase 16 U/L (5-31); Blood Urea Nitrogen 9 mg/dL (9-16); Calcium 8.6 mg/dL (8.4-10.2); Carbon Dioxide 25 mmol/L (22-29); Chloride 105 mmol/L (96-108); Creatinine Clr Calc Pharmacy 88.2; Estimated Glomerular Filt Rate > 60; Potassium 3.7 mmol/L (3.3-5.1); Sodium 138 mmol/L (135-145); Total Protein 7.0 g/dL (6.5-8.0)
[2025-05-24 16:52] VITALS: BP 125/86; PULSE 106; RESP 16; TEMP 36.3; O2SAT 98
== END 2025-05-24 16:52 | disposition home or self-care (01) ==
PROVIDERS: Physician Assistant; Emergency Provider Emergency Medicine; PCP Internal Medicine
DX: S80.12XA Contusion of left lower leg, initial encounter (principal); M79.605 Pain in left leg; X58.XXXA Exposure to other specified factors, initial encounter; Y93.9 Activity, unspecified; Y92.9 Unspecified place or not applicable; Y99.8 Other external cause status; Z87.891 Personal history of nicotine dependence
CPT/HCPCS: 36415; 73564; 73590; 73600; 73620; 80053; 85025; 85610; 85730; 99282; 99283

== ENCOUNTER → 2025-05-24 15:18 | Outpatient (BNV) | payer MEDICAID, SELFPAY | PROVIDERS: PCP Internal Medicine; Visit Provider Radiology Diagnostic Radiology | DX: S80.12XA Contusion of left lower leg, initial encounter (principal); M77.32 Calcaneal spur, left foot; W19.XXXA Unspecified fall, initial encounter | CPT/HCPCS: 73564; 73590; 73600; 73620 ==